=== PATIENT | male | born 1995 | race Caucasian/White ===

== ENCOUNTER 2017-10-05 02:47 | Emergency (ER) | payer OTHER ==
[~2017-10-05] VITALS: Ht 175.3 cm; Wt 68.0 kg
[~2017-10-05 02:47] MED LIST: ADDERALL 10 MG10 MG; KEFLEX500 M1 PO; TRAMADOL 50 MG50 MG PO
[2017-10-05 02:54] VITALS: BP 132/91
[2017-10-05] MEDS ORDERED: PERCOCET 7.5-31 EACH PO (03:08)
== END 2017-10-05 03:17 | disposition home or self-care (01) ==
LOC: M.ERS 02:47
DX: T23.201A Burn of second degree of right hand, unspecified site, initial encounter (principal); T20.20XA Burn of second degree of head, face, and neck, unspecified site, initial encounter; T31.0 Burns involving less than 10% of body surface; F90.9 Attention-deficit hyperactivity disorder, unspecified type; Z77.22 Contact with and (suspected) exposure to environmental tobacco smoke (acute) (chronic); Z88.1 Allergy status to other antibiotic agents; X08.8XXA Exposure to other specified smoke, fire and flames, initial encounter; Y93.89 Activity, other specified; Y92.89 Other specified places as the place of occurrence of the external cause; Y99.8 Other external cause status